=== PATIENT | male | born 1985 | race Two or more races ===

== ENCOUNTER 2017-09-02 23:31 | Emergency (ER) | payer BC ==
[~2017-09-02] VITALS: Ht 177.8 cm; Wt 85.7 kg
--- NOTE | 2017-09-02 23:53 | NUR ---
ER MD at bedside for patient evaluation
[2017-09-02] MEDS ORDERED: SULFAMETH/TRIMETH 800/160 MG TABLET ONE (23:57)
[2017-09-02] MEDS ORDERED: HYDROCORTISONE 1% CREAM 30 GM TUBE TP ONE (23:58)
[2017-09-03] MEDS ORDERED: SULFAMETH/TRIMETH 800/160 MG TABLET PO ONE
--- NOTE | 2017-09-03 00:04 | NUR ---
Patient discharged to home in stable conditon. Written and verbal after care instructions given. Patient verbalizes understanding of instructions. Ambulated from ER with stable gait. All belongings with patient.
[2017-09-03 00:06] VITALS: BP 124/60
[2017-09-03] MEDS ORDERED: HYDROCORTISONE 1% CREAM 30 GM TUBE TP ONE (00:15)
== END 2017-09-03 00:09 | disposition home or self-care (01) ==
LOC: ER 23:42
DX: R21 Rash and other nonspecific skin eruption (principal)
CPT/HCPCS: 99283; A4663